=== PATIENT | male | born 1985 | race African-American/Black ===

== ENCOUNTER 2019-04-01 18:57 | Emergency (ER) | payer OTHER ==
[2019-04-01 19:08] VITALS: BP 125/75; PULSE 71; TEMP 98.3; BMI 27.9
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
== END 2019-04-01 20:02 | disposition home or self-care (01) ==
LOC: JERFT 18:57 → JER 18:57 → JERFT 20:02
DX: S46.811A Strain of other muscles, fascia and tendons at shoulder and upper arm level, right arm, initial encounter (principal); Y04.0XXA Assault by unarmed brawl or fight, initial encounter; Y93.89 Activity, other specified; Y92.89 Other specified places as the place of occurrence of the external cause; Y99.8 Other external cause status
CPT/HCPCS: 73030-TC-RT-FY; 99281-25